=== PATIENT | male | born 1975 | race Caucasian/White ===

== ENCOUNTER 2020-06-21 10:37 | Emergency (ER) | payer MEDICAID ==
[~2020-06-21] VITALS: Ht 175.3 cm; Wt 115.5 kg
[2020-06-21 10:39] VITALS: BP 154/118
--- NOTE | 2020-06-21 10:47 | NUR ---
Pt ambulatory to room with triage tech with steady gait noted. Triage note reviewed, and pt changing into gown now.
--- NOTE | 2020-06-21 10:57 | NUR ---
Pt found in severe pain, pacing in room, grabbing R cheek, and noted redness, swelling and pain 10/10 rated in same area. Ice pack provided and awaiting . help desk specialist completed.
--- NOTE | 2020-06-21 11:20 | NUR ---
at bedside for exam.
[2020-06-21] MEDS ORDERED: HYDROcodone/APAP 5/325 TABLET ONE (11:25)
[2020-06-21] MEDS ORDERED: KETOROLAC 60 MG/2 ML ONE (11:25)
[2020-06-21] MEDS ORDERED: SULFAMETH./TRIMETHOPRIM DS 800MG/160MG TABLET PO ONE (11:30)
[2020-06-21] MEDS ORDERED: HYDROcodone/APAP 5/325 TABLET PO ONE (11:30)
[2020-06-21] MEDS ORDERED: KETOROLAC 30 MG/1 ML IM ONE (11:30)
[2020-06-21] MEDS ORDERED: AMOXICILLIN 500 MG CAPSULE PO ONE (11:30)
[2020-06-21] MEDS ORDERED: SULFAMETH./TRIMETHOPRIM DS 800MG/160MG TABLET ONE (11:37)
[2020-06-21] MEDS ORDERED: AMOXICILLIN 500 MG CAPSULE ONE (11:37)
--- NOTE | 2020-06-21 11:40 | NUR ---
Pt medicated for pain and given PO abx as ordered. Pt aware he is waiting for d/c paperwork but can change into his clothing again.
== END 2020-06-21 11:50 | disposition home or self-care (01) ==
LOC: ED 11:40
DX: L03.211 Cellulitis of face (principal); H92.01 Otalgia, right ear; R51.9 Headache, unspecified; K08.89 Other specified disorders of teeth and supporting structures; R22.0 Localized swelling, mass and lump, head; F17.200 Nicotine dependence, unspecified, uncomplicated
CPT/HCPCS: 96372; 99284; J1885

== ENCOUNTER → 2020-06-21 | Outpatient (CLI) | payer MEDICAID ==
[~2020-06-21] MED LIST: OMNIPAQUE 350 MG/ML, 75ML BOTTLE ONE
== END | disposition home or self-care (01) ==
LOC: RAD 10:04
PROVIDERS: ATTEND Family Medicine
DX: R68.84 Jaw pain (principal); M79.89 Other specified soft tissue disorders
CPT/HCPCS: 70487; Q9967